=== PATIENT | female | born 2000 | race Caucasian/White ===

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

== ENCOUNTER → 2020-07-02 07:45 | Outpatient (CLI) | payer BC, SELFPAY ==
[2020-07-02 09:46] LABS: Alanine Aminotransferase 15 IU/L (<35); Albumin 4.6 g/dL (3.5-5.0); Albumin Globulin Ratio 1.5 (1.0-2.8); Alkaline Phosphatase 75 U/L (38-126); Aspartate Aminotransferase 24 IU/L (14-36); BUN Creatinine Ratio 17.4 (6-22); Bilirubin Total 0.2 mg/dL (0.2-1.3); Blood Urea Nitrogen 12 mg/dL (7-17); Calcium 9.7 mg/dL (8.4-10.2); Carbon Dioxide 27 mmol/L (22-32); Chloride 105 mmol/L (98-107); Estimated Glomerular Filt Rate > 60.0 mL/min (>60); Globulin 3.1 g/dL (1.7-4.1); Glucose 106 mg/dL (70-100); HEMOLYSIS < 15 (0-50); Potassium 3.6 mmol/L (3.4-5.1); Sodium 141 mmol/L (137-145); Total Protein 7.7 g/dL (6.3-8.2)
[2020-07-02 10:23] LABS: TSH w/ Reflex to FT4 1.29 uIU/mL (0.47-4.68)
[2020-07-02 10:43] LABS: Add Manual Diff / Slide Review NO; Basophils Absolute Auto 100 /uL (0-100); Eosinophils Absolute Auto 100 /uL (0-450); Hematocrit 39.8 % (36-46); Hemoglobin 13.7 g/dL (12.0-16.0); Lymphocytes Absolute Auto 1600 /uL (1100-4500); Lymphocytes Percent Auto 24.5 % (25-40); Mean Corpuscular HGB Conc 34.3 % (30-36); Mean Corpuscular Hemoglobin 29.9 PG (26-34); Mean Corpuscular Volume 87.1 fL (80-100); Monocytes Absolute Auto 400 /uL (0-900); Monocytes Percent Auto 6.6 % (3-14); Neutrophils Absolute Auto 4500 /uL (1500-7000); Neutrophils Percent Auto 66.9 % (50-75); Platelet Count 290 X10^3/uL (150-400); Red Blood Cell Count 4.57 X10^6/uL (4.0-5.2); Red Cell Distribution Width 12.8 % (11.6-14.8); White Blood Cell Count 6.7 X10^3/uL (4.5-11.0)
== END ==
PROVIDERS: PCP Family Medicine; Referring Provider Student in an Organized Health Care Education/Training Program; Visit Provider Student in an Organized Health Care Education/Training Program
DX: N34.3 Urethral syndrome, unspecified (principal); R11.2 Nausea with vomiting, unspecified; R19.7 Diarrhea, unspecified
CPT/HCPCS: 36415; 80053; 84443; 85025; 87045; 87086; 87177; 87899

== ENCOUNTER → 2021-01-29 17:25 | Outpatient (CLI) | payer BC, SELFPAY ==
[2021-01-29 18:32] LABS: COVID19 -Nasal RAPID Negative (Negative)
== END ==
PROVIDERS: PCP Family Medicine; Visit Provider Physician Assistant
DX: Z20.822 Contact with and (suspected) exposure to COVID-19 (principal); J31.2 Chronic pharyngitis
CPT/HCPCS: 87070; 87635

== ENCOUNTER 2021-06-10 05:15 | Observation (INO) | payer BC, SELFPAY ==
[2021-06-10] VITALS (13 sets, daily range): BP systolic 97–129; BP diastolic 60–87; PULSE 67–102; RESP 13–20; TEMP 36.3–36.9; O2SAT 96–100; BMI 23.3
--- NOTE | 2021-06-10 | DI.CT.S_ITS ---
PROCEDURE: CT SOFT TISSUE NECK W CON INDICATIONS: Neck pain. subqutaneous air in neck, chest TECHNIQUE: After the administration of intravenous contrast, 3.0 mm axial sections acquired from the sella to the aortic arch. Additional oblique axial 3.0 mm sections acquired through the pharynx. 3 mm thick coronal and sagittal reformats were generated. For radiation dose reduction, the following was used: automated exposure control. COMPARISON: None. FINDINGS: Image quality: Excellent. Lymph nodes: No enlarged lymph nodes seen throughout the neck. Vessels: Visualized vasculature appears patent. Neck spaces: Extensive soft tissue air is noted in the neck and the anterior chest wall related to large pneumomediastinum. Soft tissue air extends to the skull base. The oropharynx, nasopharynx, and pharynx demonstrate no mucosal lesions. The vocal cords, false vocal cords, pyriform sinuses, epiglottis, vallecula, and tongue base all appear normal. Extramucosal spaces appear unremarkable. Glands: The parotid and submandibular glands appear normal. Thyroid gland is normal. Miscellaneous: Visualized brain and orbits appear normal. Lung apices appear clear. Trace biapical pneumothoraces. Superficial soft tissues appear normal. Bones: No suspicious bony lesions. Visualized sinuses and mastoids appear unremarkable. IMPRESSION: 1. Large pneumomediastinum has dissected into the neck with large amount of air in the neck soft tissues and anterior upper chest wall soft tissues. 2. Trace biapical pneumothoraces. 3. No abscess. Dictated by: Aundrea Santiago MD, PhD on 06/10/2021 at 8:16 Approved by: Aundrea Santiago MD, PhD on 06/10/2021 at 8:19
--- NOTE | 2021-06-10 05:35 | DI.CT.S_ITS ---
PROCEDURE: CT CHEST W CON INDICATIONS: neck pain, + sub cutaneous air tracking up anterior neck TECHNIQUE: After the administration of intravenous contrast, 5 mm thick sections acquired from the pulmonary apices to the posterior costophrenic angles. 1 mm axial lung, 5 mm thick coronal and sagittal reformats and 7 mm axial MIP were acquired. For radiation dose reduction, the following was used: automated exposure control, adjustment of mA and/or kV according to patient size. COMPARISON: None. FINDINGS: Image quality: Excellent. Lungs and pleura: No acute air space opacities. No pleural effusions. Trace bilateral pneumothoraces. Central and peripheral airways are patent and normal in caliber. Mediastinum: Large volume of pneumomediastinum. Pneumomediastinum tracks into the soft tissues of the anterior upper chest and the neck. Heart size is normal. No pericardial effusion. No mediastinal or hilar adenopathy by size criteria. Thoracic aorta and central pulmonary arteries are normal in size. Esophagus is normal in caliber. Small air locule noted in the left lateral wall of the esophagus at the level of the aortic arch which could be related to a nondistended esophagus or esophageal wall defect. No hiatal hernia. Bones and chest wall: No suspicious bony lesions. No vertebral body compression fractures. No axillary or supraclavicular adenopathy by size criteria. Thyroid gland is within normal limits.. Abdomen: Focal fatty infiltration partially visualized in the liver adjacent to the falciform ligament. Visualized upper abdominal solid organs otherwise appear normal. Upper abdominal bowel loops are normal in caliber. IMPRESSION: 1. Large volume of pneumomediastinum. Likely causes of pneumomediastinum could be barotrauma or esophageal perforation. If there is clinical concern for esophageal perforation recommend Gastrografin esophagram for additional evaluation. 2. Pneumomediastinum has dissected into the extrapleural spaces with trace bilateral pneumothoraces. 3. Pneumomediastinum has dissected into the anterior chest wall and neck soft tissues. Dictated by: Aundrea Santiago MD, PhD on 06/10/2021 at 8:06 Approved by: Aundrea Santiago MD, PhD on 06/10/2021 at 8:11
--- NOTE | 2021-06-10 05:35 | ED_ITS ---
HPI - General Adult <Charo Gorman MD - Last Filed: 06/12/21 07:16> General Chief complaint: Upper Respiratory Symptoms Stated complaint: vomiting,swollen throat,cant eat/drink Time Seen by Provider: 06/10/21 05:34 Source: patient Mode of arrival: Ambulatory History of Present Illness HPI narrative: 21-year-old woman with a history of anxiety and reported yearly episodes of strep pharyngitis presents with 3 days of significantly increased nausea throat pain and inability to keep food or liquids down. She has noticed diarrhea mild abdominal pain secondary to the force of vomiting, no fevers no headaches. She states she has not been feeling particularly anxious recently but there have been times in the past where she was so anxious she was continuously vomiting. She reports no cough, headache no lower extremity edema. Related Data Previous Rx's Medication Instructions Recorded ondansetron 4 mg disintegrating 4 mg PO TID-QID PRN #10 tab 10/14/19 tablet ondansetron 4 mg disintegrating 4 mg PO Q8H PRN #14 tab 06/11/21 tablet Allergies Allergy/AdvReac Type Severity Reaction Status Date / Time No Known Drug Allergies Allergy Verified 06/10/21 11:51 Review of Systems <Charo Gorman MD - Last Filed: 06/12/21 07:16> Review of Systems Narrative: Remainder of complete review of systems is otherwise unremarkable except for that included in the HPI. Patient History <Charo Gorman MD - Last Filed: 06/12/21 07:16> Medical History (Updated 06/10/21 @ 10:59 by Kelle To DO) Anxiety Pharyngitis Social History household members: family Smoking Status: Former smoker alcohol intake: current Smoking Status: Former smoker alcohol intake frequency: 0-2 drinks per day Alcohol type: beer Substance Use Type: marijuana Exam <Charo Gorman MD - Last Filed: 06/12/21 07:16> Initial Vital Signs Initial Vital Signs: Vital Signs Temperature 98.3 F 06/10/21 05:15 Pulse Rate 102 H 06/10/21 05:15 Respiratory Rate 20 06/10/21 05:15 Blood Pressure 129/87 06/10/21 05:15 Pulse Oximetry 97 06/10/21 05:15 General: Healthy appearing, anxious, appears uncomfortable but Able to give a complete and coherent history. Well-nourished well-developed HEENT: Moist mucous membranes, normal sclera with widely dilated and reactive pupils, posterior pharynx is mildly erythematous with full tonsils but no exud ate Neck: Subcutaneous air palpable anteriorly over trachea larynx extending up toward tonsillar pillars and palpable over the sternal notch. No bruising no trauma. Respiratory: Lungs are clear to auscultation, no wheezing no rales no rhonchi. Full and symmetrical air movement Cardiac: Regular rate and rhythm no murmurs no bruits Abdomen: Soft, nontender, good bowel tones, no flank pain Skin: Warm and dry, no rashes Neurologic: Grossly neurologically intact with no obvious asymmetries or abnormalities Extremities: No trauma, well perfused Psych: Cooperative, appropriate insight and affect <Kelle To DO - Last Filed: 06/10/21 12:47> Initial Vital Signs Initial Vital Signs: Vital Signs Temperature 98.3 F 06/10/21 05:15 Pulse Rate 102 H 06/10/21 05:15 Respiratory Rate 20 06/10/21 05:15 Blood Pressure 129/87 06/10/21 05:15 Pulse Oximetry 97 06/10/21 05:15 Course <Charo Gorman MD - Last Filed: 06/12/21 07:16> Orders Ordered: Discontinued Medications Hydrocodone Bitart/Acetaminophen (Hydrocodone/Acet 5/325 Tablet) 1 tab PO Q4HR PRN PRN Reason: Pain, Moderate (4-6) Last Admin: 06/11/21 09:08 Dose: 1 tab Documented by: LENIN Enoxaparin Sodium (Enoxaparin 40 Mg/0.4 Ml Syringe) 40 mg SUBCUT DAILY GRETCHEN Last Admin: 06/11/21 09:10 Dose: Not Given Documented by: LENIN Hydromorphone HCl (Hydromorphone 0.5 Mg Inj) 0.5 mg IV Q15MIN PRN PRN Reason: Pain, Last Admin: 06/10/21 12:59 Dose: 0.5 mg Documented by: Admin: 06/10/21 06:00 Dose: 0.5 mg Documented by: STALIN Sodium Chloride (Normal Saline 0.9%) 1,000 mls @ 1,000 mls/hr IV BOLUS ONE Stop: 06/10/21 06:34 Last Infusion: 06/10/21 07:53 Dose: 0 mls/hr Documented by: Admin: 06/10/21 05:59 Dose: 1,000 mls/hr Documented by: STALIN POTASSIUM CHLORIDE IN WATER (Potassium Cl 10 Meq/100 Ml Maite) 10 meq in 100 mls @ 100 mls/hr IV Q1H GRETCHEN Stop: 06/10/21 13:14 Last Admin: 06/10/21 13:14 Dose: 50 mls/hr Documented by: Infusion: 06/10/21 13:14 Dose: 0 mls/hr Documented by: Infusion: 06/10/21 11:59 Dose: 0 mls/hr Documented by: Admin: 06/10/21 11:47 Dose: 100 mls/hr Documented by: SANDRA Lactated Ringer's (Lactated Ringers) 1,000 mls @ 100 mls/hr IV CONT GRETCHEN Last Admin: 06/11/21 03:05 Dose: 100 mls/hr Documented by: Infusion: 06/11/21 03:05 Dose: 100 mls/hr Documented by: Admin: 06/10/21 17:58 Dose: 100 mls/hr Documented by: LENIN Lorazepam (Lorazepam 2 Mg/Ml Inj) 0.5 mg IV NOW ONE Stop: 06/10/21 05:36 Last Admin: 06/10/21 06:00 Dose: 0.5 mg Documented by: STALIN Lorazepam (Lorazepam 2 Mg/Ml Inj) 1 mg IV NOW ONE Stop: 06/10/21 07:37 Last Admin: 06/10/21 07:52 Dose: 1 mg Documented by: ROMAN Morphine Sulfate (Morphine 2 Mg/Ml Inj) 2 mg IV Q4H PRN PRN Reason: Breakthrough pain only (8-10) Last Admin: 06/10/21 20:13 Dose: 2 mg Documented by: KKURAY Naloxone HCl (Naloxone 0.4 Mg/Ml Vial) 0.2 mg IV Q2MIN PRN PRN Reason: Opiate Reversal Ondansetron HCl (Ondansetron 4 Mg/2 Ml Inj) 4 mg IV NOW ONE Stop: 06/10/21 05:36 Last Admin: 06/10/21 06:00 Dose: 4 mg Documented by: STALIN Ondansetron HCl (Ondansetron 4 Mg/2 Ml Inj) 4 mg IV Q6HR PRN PRN Reason: Nausea And Vomiting Last Admin: 06/10/21 13:03 Dose: 4 mg Documented by: LENIN Ondansetron HCl (Ondansetron 4 Mg/2 Ml Inj) 4 mg IV Q8HR PRN PRN Reason: Nausea And Vomiting Ondansetron HCl (Ondansetron 4 Mg/2 Ml Inj) 4 mg IV Q4HR PRN PRN Reason: Nausea And Vomiting Last Admin: 06/11/21 10:13 Dose: 4 mg Documented by: Admin: 06/11/21 05:53 Dose: 4 mg Documented by: Admin: 06/10/21 17:55 Dose: 4 mg Documented by: LENIN Vital Signs Vital signs: Vital Signs - 8 hr 06/10/21 05:15 06/10/21 08:05 06/10/21 08:30 Temperature 98.3 F Pulse Rate 102 H 87 79 Respiratory Rate 20 17 16 Blood Pressure 129/87 101/60 104/68 Pulse Oximetry 97 99 100 06/10/21 09:00 06/10/21 09:32 06/10/21 10:00 Temperature Pulse Rate 85 80 Respiratory Rate 14 Blood Pressure 105/70 106/66 Pulse Oximetry 100 98 99 06/10/21 10:06 06/10/21 10:30 Temperature Pulse Rate 74 73 Respiratory Rate 15 13 Blood Pressure 106/66 99/63 Pulse Oximetry 99 98 <Kelle To DO - Last Filed: 06/10/21 12:47> Orders Ordered: Discontinued Medications Hydrocodone Bitart/Acetaminophen (Hydrocodone/Acet 5/325 Tablet) 1 tab PO Q4HR PRN PRN Reason: Pain, Moderate (4-6) Last Admin: 06/11/21 09:08 Dose: 1 tab Documented by: LENIN Enoxaparin Sodium (Enoxaparin 40 Mg/0.4 Ml Syringe) 40 mg SUBCUT DAILY GRETCHEN Last Admin: 06/11/21 09:10 Dose: Not Given Documented by: LENIN Hydromorphone HCl (Hydromorphone 0.5 Mg Inj) 0.5 mg IV Q15MIN PRN PRN Reason: Pain, Last Admin: 06/10/21 12:59 Dose: 0.5 mg Documented by: Admin: 06/10/21 06:00 Dose: 0.5 mg Documented by: STALIN Sodium Chloride (Normal Saline 0.9%) 1,000 mls @ 1,000 mls/hr IV BOLUS ONE Stop: 06/10/21 06:34 Last Infusion: 06/10/21 07:53 Dose: 0 mls/hr Documented by: Admin: 06/10/21 05:59 Dose: 1,000 mls/hr Documented by: STALIN POTASSIUM CHLORIDE IN WATER (Potassium Cl 10 Meq/100 Ml Maite) 10 meq in 100 mls @ 100 mls/hr IV Q1H GRETCHEN Stop: 06/10/21 13:14 Last Admin: 06/10/21 13:14 Dose: 50 mls/hr Documented by: Infusion: 06/10/21 13:14 Dose: 0 mls/hr Documented by: Infusion: 06/10/21 11:59 Dose: 0 mls/hr Documented by: Admin: 06/10/21 11:47 Dose: 100 mls/hr Documented by: SANDRA Lactated Ringer's (Lactated Ringers) 1,000 mls @ 100 mls/hr IV CONT GRETCHEN Last Admin: 06/11/21 03:05 Dose: 100 mls/hr Documented by: Infusion: 06/11/21 03:05 Dose: 100 mls/hr Documented by: Admin: 06/10/21 17:58 Dose: 100 mls/hr Documented by: LENIN Lorazepam (Lorazepam 2 Mg/Ml Inj) 0.5 mg IV NOW ONE Stop: 06/10/21 05:36 Last Admin: 06/10/21 06:00 Dose: 0.5 mg Documented by: STALIN Lorazepam (Lorazepam 2 Mg/Ml Inj) 1 mg IV NOW ONE Stop: 06/10/21 07:37 Last Admin: 06/10/21 07:52 Dose: 1 mg Documented by: ROMAN Morphine Sulfate (Morphine 2 Mg/Ml Inj) 2 mg IV Q4H PRN PRN Reason: Breakthrough pain only (8-10) Last Admin: 06/10/21 20:13 Dose: 2 mg Documented by: KKURAY Naloxone HCl (Naloxone 0.4 Mg/Ml Vial) 0.2 mg IV Q2MIN PRN PRN Reason: Opiate Reversal Ondansetron HCl (Ondansetron 4 Mg/2 Ml Inj) 4 mg IV NOW ONE Stop: 06/10/21 05:36 Last Admin: 06/10/21 06:00 Dose: 4 mg Documented by: STALIN Ondansetron HCl (Ondansetron 4 Mg/2 Ml Inj) 4 mg IV Q6HR PRN PRN Reason: Nausea And Vomiting Last Admin: 06/10/21 13:03 Dose: 4 mg Documented by: LENIN Ondansetron HCl (Ondansetron 4 Mg/2 Ml Inj) 4 mg IV Q8HR PRN PRN Reason: Nausea And Vomiting Ondansetron HCl (Ondansetron 4 Mg/2 Ml Inj) 4 mg IV Q4HR PRN PRN Reason: Nausea And Vomiting Last Admin: 06/11/21 10:13 Dose: 4 mg Documented by: Admin: 06/11/21 05:53 Dose: 4 mg Documented by: Admin: 06/10/21 17:55 Dose: 4 mg Documented by: LENIN Vital Signs Vital signs: Vital Signs - 8 hr 06/10/21 05:15 06/10/21 08:05 06/10/21 08:30 Temperature 98.3 F Pulse Rate 102 H 87 79 Respiratory Rate 20 17 16 Blood Pressure 129/87 101/60 104/68 Pulse Oximetry 97 99 100 06/10/21 09:00 06/10/21 09:32 06/10/21 10:00 Temperature Pulse Rate 85 80 Respiratory Rate 14 Blood Pressure 105/70 106/66 Pulse Oximetry 100 98 99 06/10/21 10:06 06/10/21 10:30 Temperature Pulse Rate 74 73 Respiratory Rate 15 13 Blood Pressure 106/66 99/63 Pulse Oximetry 99 98 Medical Decision Making <Charo Gorman MD - Last Filed: 06/12/21 07:16> Lab Data Result diagrams: 06/11/21 04:26 06/11/21 04:26 Labs: Lab Results 06/10/21 06/10/21 06/10/21 Range/Units 05:30 05:40 05:40 WBC 10.4 (4.5-11.0) X10^3/uL RBC 5.05 (4.0-5.2) X10^6/uL Hgb 14.6 (12.0-16.0) g/dL Hct 42.0 (36-46) % MCV 83.1 (80-100) fL MCH 28.9 (26-34) PG MCHC 34.8 (30-36) % RDW 13.1 (11.6-14.8) % Plt Count 342 (150-400) X10^3/uL Neut % (Auto) 70.9 (50-75) % Lymph % (Auto) 16.9 L (25-40) % [place] % (Auto) 10.2 (3-14) % Eos % (Auto) 1.6 L (2-4) % Baso % (Auto) 0.4 (0-2) % Neut # (Auto) 7400 H (8523-6352) /uL Lymph # (Auto) 1800 (6405-2427) /uL [place] # (Auto) 1100 H (0-900) /uL Eos # (Auto) 200 (0-450) /uL Baso # (Auto) 0 (0-100) /uL Sodium 141 (137-145) mmol/L Potassium 3.2 L (3.4-5.1) mmol/L Chloride 105 (98-107) mmol/L Carbon Dioxide 22 (22-32) mmol/L BUN 12 (7-17) mg/dL Creatinine 0.85 (0.52-1.04) mg/dL Estimated GFR > 60 (>60) mL/min BUN/Creatinine Ratio 14.1 (6-22) Glucose 111 H (70-100) mg/dL Calcium 9.8 (8.4-10.2) mg/dL Total Bilirubin 0.8 (0.2-1.3) mg/dL AST 20 (14-36) IU/L ALT 13 (<35) IU/L Alkaline Phosphatase 98 (38-126) U/L Total Protein 8.6 H (6.3-8.2) g/dL Albumin 5.1 H (3.5-5.0) g/dL Globulin 3.5 (1.7-4.1) g/dL Albumin/Globulin Ratio 1.5 (1.0-2.8) SARS-CoV-2 (PCR) (Negative) Group A Strep (PCR) Negative (Negative) 06/10/21 Range/Units 05:40 WBC (4.5-11.0) X10^3/uL RBC (4.0-5.2) X10^6/uL Hgb (12.0-16.0) g/dL Hct (36-46) % MCV (80-100) fL MCH (26-34) PG MCHC (30-36) % RDW (11.6-14.8) % Plt Count (150-400) X10^3/uL Neut % (Auto) (50-75) % Lymph % (Auto) (25-40) % [place] % (Auto) (3-14) % Eos % (Auto) (2-4) % Baso % (Auto) (0-2) % Neut # (Auto) (2107-6767) /uL Lymph # (Auto) (1044-1543) /uL [place] # (Auto) (0-900) /uL Eos # (Auto) (0-450) /uL Baso # (Auto) (0-100) /uL Sodium (137-145) mmol/L Potassium (3.4-5.1) mmol/L Chloride (98-107) mmol/L Carbon Dioxide (22-32) mmol/L BUN (7-17) mg/dL Creatinine (0.52-1.04) mg/dL Estimated GFR (>60) mL/min BUN/Creatinine Ratio (6-22) Glucose (70-100) mg/dL Calcium (8.4-10.2) mg/dL Total Bilirubin (0.2-1.3) mg/dL AST (14-36) IU/L ALT (<35) IU/L Alkaline Phosphatase (38-126) U/L Total Protein (6.3-8.2) g/dL Albumin (3.5-5.0) g/dL Globulin (1.7-4.1) g/dL Albumin/Globulin Ratio (1.0-2.8) SARS-CoV-2 (PCR) Negative (Negative) Group A Strep (PCR) (Negative) Point of Care Testing Test Results Negative Point of care testing: Point of Care Testing Test Results Negative <Kelle Yousuf, DO - Last Filed: 06/10/21 12:47> Lab Data Labs: Lab Results 06/10/21 06/10/21 06/10/21 Range/Units 05:30 05:40 05:40 WBC 10.4 (4.5-11.0) X10^3/uL RBC 5.05 (4.0-5.2) X10^6/uL Hgb 14.6 (12.0-16.0) g/dL Hct 42.0 (36-46) % MCV 83.1 (80-100) fL MCH 28.9 (26-34) PG MCHC 34.8 (30-36) % RDW 13.1 (11.6-14.8) % Plt Count 342 (150-400) X10^3/uL Neut % (Auto) 70.9 (50-75) % Lymph % (Auto) 16.9 L (25-40) % [place] % (Auto) 10.2 (3-14) % Eos % (Auto) 1.6 L (2-4) % Baso % (Auto) 0.4 (0-2) % Neut # (Auto) 7400 H (0945-6613) /uL Lymph # (Auto) 1800 (9770-1044) /uL [place] # (Auto) 1100 H (0-900) /uL Eos # (Auto) 200 (0-450) /uL Baso # (Auto) 0 (0-100) /uL Sodium 141 (137-145) mmol/L Potassium 3.2 L (3.4-5.1) mmol/L Chloride 105 (98-107) mmol/L Carbon Dioxide 22 (22-32) mmol/L BUN 12 (7-17) mg/dL Creatinine 0.85 (0.52-1.04) mg/dL Estimated GFR > 60 (>60) mL/min BUN/Creatinine Ratio 14.1 (6-22) Glucose 111 H (70-100) mg/dL Calcium 9.8 (8.4-10.2) mg/dL Total Bilirubin 0.8 (0.2-1.3) mg/dL AST 20 (14-36) IU/L ALT 13 (<35) IU/L Alkaline Phosphatase 98 (38-126) U/L Total Protein 8.6 H (6.3-8.2) g/dL Albumin 5.1 H (3.5-5.0) g/dL Globulin 3.5 (1.7-4.1) g/dL Albumin/Globulin Ratio 1.5 (1.0-2.8) SARS-CoV-2 (PCR) (Negative) Group A Strep (PCR) Negative (Negative) 06/10/21 Range/Units 05:40 WBC (4.5-11.0) X10^3/uL RBC (4.0-5.2) X10^6/uL Hgb (12.0-16.0) g/dL Hct (36-46) % MCV (80-100) fL MCH (26-34) PG MCHC (30-36) % RDW (11.6-14.8) % Plt Count (150-400) X10^3/uL Neut % (Auto) (50-75) % Lymph % (Auto) (25-40) % [place] % (Auto) (3-14) % Eos % (Auto) (2-4) % Baso % (Auto) (0-2) % Neut # (Auto) (1822-4184) /uL Lymph # (Auto) (6987-5231) /uL [place] # (Auto) (0-900) /uL Eos # (Auto) (0-450) /uL Baso # (Auto) (0-100) /uL Sodium (137-145) mmol/L Potassium (3.4-5.1) mmol/L Chloride (98-107) mmol/L Carbon Dioxide (22-32) mmol/L BUN (7-17) mg/dL Creatinine (0.52-1.04) mg/dL Estimated GFR (>60) mL/min BUN/Creatinine Ratio (6-22) Glucose (70-100) mg/dL Calcium (8.4-10.2) mg/dL Total Bilirubin (0.2-1.3) mg/dL AST (14-36) IU/L ALT (<35) IU/L Alkaline Phosphatase (38-126) U/L Total Protein (6.3-8.2) g/dL Albumin (3.5-5.0) g/dL Globulin (1.7-4.1) g/dL Albumin/Globulin Ratio (1.0-2.8) SARS-CoV-2 (PCR) Negative (Negative) Group A Strep (PCR) (Negative) Point of Care Testing Test Results Negative Point of care testing: Point of Care Testing Test Results Negative Imaging Data CT scan - chest: Radiologist's Impression: Pulmonary report: Large volume of pneumomediastinum tracking up the cervical so ft tissues bilaterally. The thoracic esophagus is collapsed limiting evaluation for esophageal rupture. Questionable linear defect in the right esophageal wall at the level of the thea evaluation with water-soluble contrast such as Gastrografin is recommended to evaluate for esophageal perforation. Dissection of mediastinal air into the extrapleural space with tiny bilateral pneumothoraces ST soft tissue neck: Radiologist's Impression: PROCEDURE:? CT SOFT TISSUE NECK W CON ? INDICATIONS:? Neck pain. subqutaneous air in neck, chest ? TECHNIQUE:? After the administration of intravenous contrast, 3.0 mm axial sections acquired from the sella to the aortic arch.? Additional oblique axial 3.0 mm sections acquired through the pharynx.? 3 mm thick coronal and sagittal reformats were generated.? For radiation dose reduction, the following was used:? automated exposure control.? ? COMPARISON:? None. ? FINDINGS:? Image quality:? Excellent.? ? Lymph nodes:? No enlarged lymph nodes seen throughout the neck.? ? Vessels:? Visualized vasculature appears patent.? ? Neck spaces:? Extensive soft tissue air is noted in the neck and the anterior chest wall related to large pneumomediastinum.? Soft tissue air extends to the skull base.? The oropharynx, nasopharynx, and pharynx demonstrate no mucosal lesions.? The vocal cords, false vocal cords, pyriform sinuses, epiglottis, vallecula, and tongue base all appear normal.? Extramucosal spaces appear unremarkable.? ? Glands:? The parotid and submandibular glands appear normal.? Thyroid gland is normal. ? Miscellaneous:? Visualized brain and orbits appear normal.? Lung apices appear clear.? Trace biapical pneumothoraces.? Superficial soft tissues appear normal. ? Bones:? No suspicious bony lesions.? Visualized sinuses and mastoids appear unremarkable. ? ? ? IMPRESSION:? ? 1. Large pneumomediastinum has dissected into the neck with large amount of air in the neck soft tissues and anterior upper chest wall soft tissues. ? 2. Trace biapical pneumothoraces. ? 3. No abscess.? ? Dictated by: Aundrea Santiago MD, PhD on 06/10/2021 at 8:16 ?? Xray barium swallow: Radiologist's Impression: Signed Patient: Kerrie Oscar MR#: [id number] : 2000 Acct:[id number] Age/Sex: 21 / F Date of Service: 06/10/21 Loc: ED Accession Number: [id number] ?? Procedure: FL barium swallow Ordering Provider: Kelle To D.O. PROCEDURE:? FL BARIUM SWALLOW ? INDICATIONS:? esophageal rupture, with gastrograffin ? COMPARISON:? None. ? FINDINGS:? ? Function:? There is normal esophageal peristalsis.? ? Morphology:? Single contrast views show no extravasation of contrast from the esophagus to suggest perforation.? No esophageal strictures, extrinsic mass effects, or diverticula.? Limited images of the stomach demonstrate normal appearance.? ? IMPRESSION:? No evidence of esophageal perforation. ? ? Dictated by: Aundrea Santiago MD, PhD on 06/10/2021 at 9:42 ? ? Approved by: Aundrea Santiago MD, PhD on 06/10/2021 at 9:45 ? MDM Narrative Medical decision making narrative: Patient signed out to me by Dr. Velazquez. I have seen and evaluated her myself. Overall feeling much calmer she does have some subcutaneous air noted in the cervical region. CT shows extensive pneumomediastinum. She states that she has been vomiting for the last 3 days multiple occasionally violently. His she de nies self induced vomiting. She started complaining of shortness of breath and sore throat yesterday. Unable to eat or drink anything since then. Came to ED for further evaluation. Vitals are stable she is satting 99% on room air 08:14 Dr. Nassar, CVT, at [facility] has reviewed scans himself. He states that without pleural effusion is unlikely esophageal perforation, however does need further workup. He thinks this is from Alana effect. At this time he recommends a standard esophagram nausea CT esophagram to rule out esophageal perforation. If that is negative he does recommend overnight admission for pain control in vitals to be monitored. He says there are trace pneumothoraces however no need to treat at this time. Patient has remained stable. Pain is controlled. She was given IV fluids. Potassium is mildly low, likely from vomiting. 1100am- Dr. Marin updated on patient's symptoms test results and [facility] recommendations. Agrees with observation at this time. Discharge Plan Departure Patient Disposition: Admitted as Observation Clinical Impression: Pneumomediastinum, Acute hypokalemia Admit Date/Time: 06/10/21 10:59 Admit Provider: Panchito Marin
[2021-06-10 05:53] LABS: Add Manual Diff / Slide Review NO; Basophils Absolute Auto 0 /uL (0-100); Basophils Percent Auto 0.4 % (0-2); Eosinophils Absolute Auto 200 /uL (0-450); Eosinophils Percent Auto 1.6 % (2-4); Hemoglobin 14.6 g/dL (12.0-16.0); Lymphocytes Absolute Auto 1800 /uL (1100-4500); Lymphocytes Percent Auto 16.9 % (25-40); Mean Corpuscular HGB Conc 34.8 % (30-36); Mean Corpuscular Hemoglobin 28.9 PG (26-34); Mean Corpuscular Volume 83.1 fL (80-100); Monocytes Absolute Auto 1100 /uL (0-900); Monocytes Percent Auto 10.2 % (3-14); Neutrophils Absolute Auto 7400 /uL (1500-7000); Neutrophils Percent Auto 70.9 % (50-75); Platelet Count 342 X10^3/uL (150-400); Red Blood Cell Count 5.05 X10^6/uL (4.0-5.2); Red Cell Distribution Width 13.1 % (11.6-14.8); White Blood Cell Count 10.4 X10^3/uL (4.5-11.0)
[2021-06-10] MEDS: SODIUM CHLORIDE 0.9% 1,000 ML 1000 ML IV (05:59)
[2021-06-10] MEDS: HYDROMORPHONE 0.5 MG INJ IV ×2 (06:00→12:59)
[2021-06-10] MEDS: ONDANSETRON 4 MG/2 ML INJ IV ×3 (06:00→17:55)
[2021-06-10] MEDS: LORazepam 2 MG/ML INJ 0.5 MG IV (06:00)
[2021-06-10 06:03] LABS: Alanine Aminotransferase 13 IU/L (<35); Albumin 5.1 g/dL (3.5-5.0); Albumin Globulin Ratio 1.5 (1.0-2.8); Alkaline Phosphatase 98 U/L (38-126); Aspartate Aminotransferase 20 IU/L (14-36); BUN Creatinine Ratio 14.1 (6-22); Bilirubin Total 0.8 mg/dL (0.2-1.3); Blood Urea Nitrogen 12 mg/dL (7-17); Calcium 9.8 mg/dL (8.4-10.2); Carbon Dioxide 22 mmol/L (22-32); Chloride 105 mmol/L (98-107); Estimated Glomerular Filt Rate > 60 mL/min (>60); Globulin 3.5 g/dL (1.7-4.1); Glucose 111 mg/dL (70-100); HEMOLYSIS < 15 (0-50); Potassium 3.2 mmol/L (3.4-5.1); Sodium 141 mmol/L (137-145); Total Protein 8.6 g/dL (6.3-8.2)
[2021-06-10 06:06] LABS: COVID19 -Nasal RAPID Negative (Negative)
[2021-06-10 06:45] LABS: Strep Grp A by PCR Rapid Negative (Negative)
[2021-06-10] MEDS: LORazepam 2 MG/ML INJ 1 MG IV (07:52)
--- NOTE | 2021-06-10 08:21 | DI.RAD.S_ITS ---
PROCEDURE: FL BARIUM SWALLOW INDICATIONS: esophageal rupture, with gastrograffin COMPARISON: None. FINDINGS: Function: There is normal esophageal peristalsis. Morphology: Single contrast views show no extravasation of contrast from the esophagus to suggest perforation. No esophageal strictures, extrinsic mass effects, or diverticula. Limited images of the stomach demonstrate normal appearance. IMPRESSION: No evidence of esophageal perforation. Dictated by: Aundrea Santiago MD, PhD on 06/10/2021 at 9:42 Approved by: Aundrea Santiago MD, PhD on 06/10/2021 at 9:45
--- NOTE | 2021-06-10 10:03 | PC.NURSE ---
pt has crepitus in the anterior upper chest and neck. no difficulty breathing. placed oxygen for comfort.
[2021-06-10] MEDS: POTASSIUM CHLORIDE IN WATER 10 MEQ/100 ML PIGGYBACK 100 MEQ IV (11:47)
[2021-06-10] MEDS: POTASSIUM CHLORIDE IN WATER 10 MEQ/100 ML PIGGYBACK 50 MEQ IV (13:14)
--- NOTE | 2021-06-10 16:27 | PC.NURSE ---
Addendum entered by Kenna Mccollum R.N. 06/10/21 18:56: patient tolerating RA, denies having any appetite Original Note: Pt arrived from ED this afternoon ambulating with steady gait, VSS, afebrile. She is 100% on 2LNC, given for 02 from Ed for support. She receives x2 bags of k+riders, tolerating well. MD Marin notified of patient's arrival to the unit and received telephone orders for zofran PRN. She is medicated with x1 dose of 0.5 mg IV dilaudid for throat pain. Observed crepitus from patient's anterior chest up to her jaw. LS clear throughout. Continuous monitoring. She reports nausea improved and requesting to drink. notified and ordered pt a clear liquid diet which she is tolerating well.
--- NOTE | 2021-06-10 17:12 | PM.HP.1 ---
History of Present Illness History of Present Illness Date Patient Seen: 06/10/21 Chief complaint: vomiting,swollen throat, cant eat/drink Narrative: The patient is a 21-year-old woman with a history of anxiety who vomits frequently due to her anxiety. She had a recent episode of retching and dry heaving over the past 3 days and developed neck pain and swelling. She presented to the emergency room this morning where a CT scan showed significant pneumomediastinum and subcutaneous emphysema. Dr. To consulted with the on-call cardiothoracic surgeon at her review who recommended an esophagram to rule out an esophageal perforation which was performed and was negative. He then recommended observation here overnight. Patient History Medical History (Updated 06/10/21 @ 10:59 by Kelle To DO) Anxiety Pharyngitis Family & Social History Social History: household members family Prior Living Arrangements House Safety & Behavioral: Feels Safe in Current Yes Environment Been Physically Hurt or No Threatened By a Person Suicidal Ideation Description None Suicide Plan Description No Plan Tobacco & Substance use: Tobacco type cigarettes Smoking Status Former smoker alcohol intake current alcohol intake frequency 0-2 drinks per day Substance Use Type marijuana Meds Home Medications and Allergies Home Medications Medication Instructions Recorded Confirmed Type ondansetron 4 mg disintegrating 4 mg PO TID-QID PRN #10 tab 10/14/19 06/10/21 Rx tablet Allergies Allergy/AdvReac Type Severity Reaction Status Date / Time No Known Drug Allergies Allergy Verified 06/10/21 11:51 Exam Vital Signs (past 8 hours): - 06/10/21 09:32 06/10/21 10:00 06/10/21 10:06 Temperature Pulse Rate 80 74 Respiratory Rate 14 15 Blood Pressure 106/66 106/66 Pulse Oximetry 98 99 99 06/10/21 10:30 06/10/21 11:00 06/10/21 11:30 Temperature Pulse Rate 73 72 74 Respiratory Rate 13 13 14 Blood Pressure 99/63 100/61 97/63 Pulse Oximetry 98 96 98 06/10/21 12:10 06/10/21 15:00 Temperature 97.4 F L 98.1 F Pulse Rate 78 67 Respiratory Rate 20 Blood Pressure 124/75 103/67 Pulse Oximetry 99 100 Oxygen Delivery Method Room Air Const General: healthy appearing and comfortable HENNH Other: There is crepitus involving the subcutaneous tissue of the bilateral neck Objective Labs Result Diagrams: 06/10/21 05:40 06/10/21 05:40 Labs: Laboratory Results - last 24 hr 06/10/21 06/10/21 06/10/21 05:30 05:40 05:40 WBC 10.4 RBC 5.05 Hgb 14.6 Hct 42.0 MCV 83.1 MCH 28.9 MCHC 34.8 RDW 13.1 Plt Count 342 Neut % (Auto) 70.9 Lymph % (Auto) 16.9 L [place] % (Auto) 10.2 Eos % (Auto) 1.6 L Baso % (Auto) 0.4 Neut # (Auto) 7400 H Lymph # (Auto) 1800 [place] # (Auto) 1100 H Eos # (Auto) 200 Baso # (Auto) 0 Sodium 141 Potassium 3.2 L Chloride 105 Carbon Dioxide 22 BUN 12 Creatinine 0.85 Estimated GFR > 60 BUN/Creatinine Ratio 14.1 Glucose 111 H Calcium 9.8 Total Bilirubin 0.8 AST 20 ALT 13 Alkaline Phosphatase 98 Total Protein 8.6 H Albumin 5.1 H Globulin 3.5 Albumin/Globulin Ratio 1.5 SARS-CoV-2 (PCR) Group A Strep (PCR) Negative 06/10/21 05:40 WBC RBC Hgb Hct MCV MCH MCHC RDW Plt Count Neut % (Auto) Lymph % (Auto) [place] % (Auto) Eos % (Auto) Baso % (Auto) Neut # (Auto) Lymph # (Auto) [place] # (Auto) Eos # (Auto) Baso # (Auto) Sodium Potassium Chloride Carbon Dioxide BUN Creatinine Estimated GFR BUN/Creatinine Ratio Glucose Calcium Total Bilirubin AST ALT Alkaline Phosphatase Total Protein Albumin Globulin Albumin/Globulin Ratio SARS-CoV-2 (PCR) Negative Group A Strep (PCR) Assessment & Plan Assessment and plan (1) Pneumomediastinum: Status: Acute Plan Admit for observation. Advance diet as tolerates. We will perform a two view chest x-ray in the morning and if she is doing well will be able to discharge home. Time Spent With Patient Critical Care time: I spent a total of [] minutes of critical care time on this patient's care today; this time is exclusive of procedural time. Quality VTE Deep Vein Thrombosis/Pulmonary Embolism Present on Admission: No
--- NOTE | 2021-06-10 17:18 | PM.HP.1 ---
History of Present Illness History of Present Illness Chief complaint: vomiting,swollen throat, cant eat/drink Narrative: The patient is a 21-year-old woman with a history of anxiety who vomits frequently due to her anxiety. She had a recent episode of retching and dry heaving over the past 3 days and developed neck pain and swelling. She presented to the emergency room this morning where a CT scan showed significant pneumomediastinum and subcutaneous emphysema. Dr. To consulted with the on-call cardiothoracic surgeon at her review who recommended an esophagram to rule out an esophageal perforation which was performed and was negative. He then recommended observation here overnight. Patient History Medical History (Updated 06/10/21 @ 10:59 by Kelle To DO) Anxiety Pharyngitis Family & Social History Social History: household members family Prior Living Arrangements House Safety & Behavioral: Feels Safe in Current Yes Environment Been Physically Hurt or No Threatened By a Person Suicidal Ideation Description None Suicide Plan Description No Plan Tobacco & Substance use: Tobacco type cigarettes Smoking Status Former smoker alcohol intake current alcohol intake frequency 0-2 drinks per day Substance Use Type marijuana Meds Home Medications and Allergies Home Medications Medication Instructions Recorded Confirmed Type ondansetron 4 mg disintegrating 4 mg PO TID-QID PRN #10 tab 10/14/19 06/10/21 Rx tablet Allergies Allergy/AdvReac Type Severity Reaction Status Date / Time No Known Drug Allergies Allergy Verified 06/10/21 11:51 Exam Vital Signs (past 8 hours): - 06/10/21 09:32 06/10/21 10:00 06/10/21 10:06 Temperature Pulse Rate 80 74 Respiratory Rate 14 15 Blood Pressure 106/66 106/66 Pulse Oximetry 98 99 99 06/10/21 10:30 06/10/21 11:00 06/10/21 11:30 Temperature Pulse Rate 73 72 74 Respiratory Rate 13 13 14 Blood Pressure 99/63 100/61 97/63 Pulse Oximetry 98 96 98 06/10/21 12:10 06/10/21 15:00 Temperature 97.4 F L 98.1 F Pulse Rate 78 67 Respiratory Rate 20 Blood Pressure 124/75 103/67 Pulse Oximetry 99 100 Oxygen Delivery Method Room Air Objective Labs Result Diagrams: 06/10/21 05:40 06/10/21 05:40 Labs: Laboratory Results - last 24 hr 06/10/21 06/10/2106/10/22 05:30 05:40 05:40 WBC 10.4 RBC 5.05 Hgb 14.6 Hct 42.0 MCV 83.1 MCH 28.9 MCHC 34.8 RDW 13.1 Plt Count 342 Neut % (Auto) 70.9 Lymph % (Auto) 16.9 L [place] % (Auto) 10.2 Eos % (Auto) 1.6 L Baso % (Auto) 0.4 Neut # (Auto) 7400 H Lymph # (Auto) 1800 [place] # (Auto) 1100 H Eos # (Auto) 200 Baso # (Auto) 0 Sodium 141 Potassium 3.2 L Chloride 105 Carbon Dioxide 22 BUN 12 Creatinine 0.85 Estimated GFR > 60 BUN/Creatinine Ratio 14.1 Glucose 111 H Calcium 9.8 Total Bilirubin 0.8 AST 20 ALT 13 Alkaline Phosphatase 98 Total Protein 8.6 H Albumin 5.1 H Globulin 3.5 Albumin/Globulin Ratio 1.5 SARS-CoV-2 (PCR) Group A Strep (PCR) Negative 06/10/21 05:40 WBC RBC Hgb Hct MCV MCH MCHC RDW Plt Count Neut % (Auto) Lymph % (Auto) [place] % (Auto) Eos % (Auto) Baso % (Auto) Neut # (Auto) Lymph # (Auto) [place] # (Auto) Eos # (Auto) Baso # (Auto) Sodium Potassium Chloride Carbon Dioxide BUN Creatinine Estimated GFR BUN/Creatinine Ratio Glucose Calcium Total Bilirubin AST ALT Alkaline Phosphatase Total Protein Albumin Globulin Albumin/Globulin Ratio SARS-CoV-2 (PCR) Negative Group A Strep (PCR) Assessment & Plan Assessment and plan (1) Pneumomediastinum: Status: Acute Time Spent With Patient Critical Care time: I spent a total of [] minutes of critical care time on this patient's care today; this time is exclusive of procedural time. Quality VTE Deep Vein Thrombosis/Pulmonary Embolism Present on Admission: No
[2021-06-10] MEDS: LACTATED RINGERS 1,000 ML 100 ML IV (17:58)
[2021-06-10] MEDS: MORPHINE 2 MG/ML INJ IV (20:13)
--- NOTE | 2021-06-11 | DI.RAD.S_ITS ---
PROCEDURE: XR CHEST 2V INDICATIONS: pneumothorax TECHNIQUE: 2 views of the chest were acquired. COMPARISON: [facility], CT, CT CHEST W CON, 06/10/2021, 5:45. FINDINGS: Surgical changes and devices: None. Lungs and pleura: Lungs are clear. No pleural effusions. Trace apical pneumothoraces. Mediastinum: Pneumomediastinum noted which has dissected into the soft tissues of the lower neck and upper chest wall. Mediastinal contours are normal. Heart size is normal. Bones and chest wall: No suspicious bony abnormalities. Soft tissues appear unremarkable. IMPRESSION: Trace apical pneumothoraces and pneumomediastinum not significantly changed compared to prior CT scan. Dictated by: Aundrea Santiago MD, PhD on 06/11/2021 at 8:06 Approved by: Aundrea Santiago MD, PhD on 06/11/2021 at 8:09
[2021-06-11] MEDS: LACTATED RINGERS 1,000 ML 100 ML IV (03:05)
[2021-06-11 04:43] LABS: Add Manual Diff / Slide Review NO; Basophils Absolute Auto 0 /uL (0-100); Basophils Percent Auto 0.6 % (0-2); Eosinophils Absolute Auto 300 /uL (0-450); Eosinophils Percent Auto 4.4 % (2-4); Hematocrit 36.9 % (36-46); Hemoglobin 12.8 g/dL (12.0-16.0); Lymphocytes Absolute Auto 1800 /uL (1100-4500); Lymphocytes Percent Auto 29.2 % (25-40); Mean Corpuscular HGB Conc 34.6 % (30-36); Mean Corpuscular Hemoglobin 29.2 PG (26-34); Mean Corpuscular Volume 84.3 fL (80-100); Monocytes Absolute Auto 600 /uL (0-900); Monocytes Percent Auto 9.5 % (3-14); Neutrophils Absolute Auto 3500 /uL (1500-7000); Neutrophils Percent Auto 56.3 % (50-75); Platelet Count 267 X10^3/uL (150-400); Red Blood Cell Count 4.38 X10^6/uL (4.0-5.2); Red Cell Distribution Width 13.1 % (11.6-14.8); White Blood Cell Count 6.2 X10^3/uL (4.5-11.0)
[2021-06-11 04:50] LABS: BUN Creatinine Ratio 9.6 (6-22); Blood Urea Nitrogen 7 mg/dL (7-17); Calcium 8.8 mg/dL (8.4-10.2); Carbon Dioxide 26 mmol/L (22-32); Chloride 107 mmol/L (98-107); Estimated Glomerular Filt Rate > 60 mL/min (>60); Glucose 92 mg/dL (70-100); HEMOLYSIS < 15 (0-50); Potassium 3.6 mmol/L (3.4-5.1); Sodium 141 mmol/L (137-145)
[2021-06-11] MEDS: ONDANSETRON 4 MG/2 ML INJ IV ×2 (05:53→10:13)
--- NOTE | 2021-06-11 08:32 | P.DS_ITS ---
History of Present Illness History of Present Illness Chief complaint: vomiting,swollen throat, cant eat/drink Narrative: The patient is a 21-year-old woman with a history of anxiety who vomits frequently due to her anxiety. She had a recent episode of retching and dry heaving over the past 3 days and developed neck pain and swelling. She presented to the emergency room this morning where a CT scan showed significant pneumomediastinum and subcutaneous emphysema. Dr. To consulted with the on-call cardiothoracic surgeon at her review who recommended an esophagram to rule out an esophageal perforation which was performed and was negative. He then recommended observation here overnight. Discharge Providers Provider Date of admission: 06/10/21 10:59 Discharge Date: 06/11/21 Primary care physician: Ricky Pitts MD Discharge provider: Panchito Marin MD Summary Hospital Course Discharge Diagnosis: Pneumomediastinum Hospital Course: Patient was admitted for observation the recommendation of the cardiothoracic surgeon are reviewed. She remained stable overnight. She was able to tolerate a clear liquid diet but had no appetite to try solid food. This was her baseline. Her labs were normal in the morning and her chest x-ray showed stable tiny pneumothoraces and pneumomediastinum. She was discharged home. Exam Vital Signs (past 8 hours): Oxygen Delivery Method Room Air Oxygen Flow Rate 0 Narrative Exam Narrative: No acute distress Stable subcutaneous emphysema of the neck and supraclavicular regions. Objective Labs Result Diagrams: 06/11/21 04:26 06/11/21 04:26 Labs: Laboratory Results - last 24 hr 06/11/21 06/11/21 04:26 04:26 WBC 6.2 RBC 4.38 Hgb 12.8 Hct 36.9 MCV 84.3 MCH 29.2 MCHC 34.6 RDW 13.1 Plt Count 267 Neut % (Auto) 56.3 Lymph % (Auto) 29.2 [place] % (Auto) 9.5 Eos % (Auto) 4.4 H Baso % (Auto) 0.6 Neut # (Auto) 3500 Lymph # (Auto) 1800 [place] # (Auto) 600 Eos # (Auto) 300 Baso # (Auto) 0 Sodium 141 Potassium 3.6 Chloride 107 Carbon Dioxide 26 BUN 7 Creatinine 0.73 Estimated GFR > 60 BUN/Creatinine Ratio 9.6 Glucose 92 Calcium 8.8 [facility] Medical History (Updated 06/10/21 @ 10:59 by Kelle To DO) Anxiety Pharyngitis Social History household members: family Smoking Status: Former smoker alcohol intake: current Discharge Plan Discharge Plan Patient Disposition: Home Provider Discharge Comment: Return to ER for any new fevers, shortness of breath or worsening swelling. Discharge orders & Medications Prescriptions: Continued ondansetron 4 mg tablet,disintegrating 4 mg PO TID-QID PRN (Reason: nausea and vomiting) Qty: 10 0RF Follow up/Referrals: Ricky Pitts MD [Primary Care Provider] - Discharge Data Primary Care Provider: Ricky Pitts Attending Provider: Panchito Marin VTE Deep Vein Thrombosis/Pulmonary Embolism Present on Admission: No
[2021-06-11 08:40] VITALS: BP 112/74; PULSE 74; RESP 16; TEMP 36.3; O2SAT 100
[2021-06-11] MEDS: HYDROCODONE/ACET 5/325 TABLET 1 TAB PO (09:08)
--- NOTE | 2021-06-11 09:18 | PM.OP.EC ---
Operative Date/Time/Diagnoses Date of procedure: 06/11/21 Time of procedure: 09:18 Pre-op diagnosis: Dysphagia and colon cancer screening Post-op diagnosis: same Procedure & Clinicians Study performed: EGD and colonoscopy Surgeon: Panchito Marin Procedure Notes Procedure in detail: Procedure in detail: A timeout was performed. Bite blocked was placed. Patient was positioned in a left lateral decubitus position. Sedation was administered with Versed and fentanyl. Once the patient was sedated the endoscope was inserted through the bite block and passed through the esophagus and stomach and into the duodenum. The duodenum was normal. The antrum was normal but random biopsies were taken to rule out H pylori. In the body of the stomach there were small black lesions on mucosa which may have been old blood but were unable to be dislodged by the scope or by blunt closed forceps so one of them was biopsied with the forceps and sent as ?gastric lesion?. The scope was retroflexed and a very small hiatal hernia was noted. The hiatal hernia was probably about 2 cm. Scope was drawn into the esophagus and the distal see off the gas was noted to be inflamed with long segments of salmon-colored mucosa consistent with long segment Thompson's. The segments were greater than 3 cm. At least 12 biopsies were taken circumferentially from the distal esophagus at various levels. There is also a small polyp in the mid esophagus which was removed with forceps. 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 A digital rectal exam was performed and was normal. The colonoscope was inserted and advanced to the cecum. The appendiceal orifice was identified and photographed. The scope was slowly withdrawn over greater than 6 minutes. There were no lesions noted. Old tattoo ink was noted in the distal sigmoid colon but no polyps were noted there. The scope was retroflexed in the rectum and no lesions were noted. Findings: Normal colonoscopy EBL: 30 mL Scope withdrawal time: 9 Sedation minutes: 43 Post-procedure Recommendations: Will call with biopsy results
--- NOTE | 2021-06-11 09:30 | CM.DANOTE ---
DCP: Case received, EMR reviewed and met with patient. Significant other was also present in the room. Introduced self and role. Was able to obtain some health history from patient. DCP assessment completed with information currently available. Patient is a 21 year old female who admitted yesterday morning to the care of the hospitalist team. PCP: Dr. Pitts. Payer: confirmed: [facility] [employer] [facility] Out of [facility]. Patient came to the hospital via private vehicle secondary to having nausea and vomiting. Patient has history of anxiety, which causes her to vomit. Patient had a recent episode of retching and dry heaving over the last few days causing neck discomfort and swelling. CT scan noted pneumomediastinum. Her esophagram to rule out esophageal perforation was negative, she is here for observation. Met with patient and significant other in room. She was sitting up in bed, trying to eat. 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 She resides here in [place], and confirmed that Dr. Pitts is her primary care provider. P: Patient is to be discharged home today. Magda Pacheco RN/Acquisitions Assistant Discharge Planning/Care Management CM Discharge Assessment Start: 06/11/21 09:29 Freq: Status: Active Protocol: Document 06/11/21 09:30 (Rec: 06/11/21 09:30 [id number]) Discharge Planning Assessment Assigned Home Care Nurse Magda Pacheco RN/Acquisitions Assistant Advance Directives? No History Provided By Patient,Medical Record Prior Living Arrangements House Household Members family Type of transporation used prior to Drives own vehicle admit Independent with ADL's Yes Is patient alert and oriented? Yes Barriers to Discharge No Discharge Plan Home Transportation Arrangement Significant other Referrals Initiated None needed Whiteboard Updated in Patient Room with Yes name and ext. # of Home Care Nurse Review Status In Process Next Review Type Continued Stay Review
--- NOTE | 2021-06-11 10:39 | PC.NURSE ---
Pt A&OX3, reports nausea somewhat improved. She is tolerating clear liquids fairly. MD at bedside this a.m. clearing her for discharge home. She notes that her throat soreness is tolerable at 3-4/10.She verbalizes understanding of discharge medications, and instructions. She is escorted with her boyfriend to private vehicle for discharge home with all of her belongings at 1020.
== END 2021-06-11 10:20 | disposition home or self-care (01) ==
LOC: ED 10:59 → AC 11:03
PROVIDERS: Emergency Medicine; Admitting Provider Surgery; Emergency Provider Emergency Medicine; PCP Family Medicine; Referring Provider Emergency Medicine; Visit Provider Surgery
DX: T79.7XXA Traumatic subcutaneous emphysema, initial encounter (principal); F41.9 Anxiety disorder, unspecified; Z20.822 Contact with and (suspected) exposure to COVID-19
CPT/HCPCS: 36415; 70491; 71046; 71260; 74220; 80048; 80053; 81025; 85025; 87070; 87635; 87651; 96361; 96374; 96375; 96376; 99217; 99218; 99284; C9803; G0378; J1170; J2060; J2270; J2405; Q9967

== ENCOUNTER → 2021-11-15 14:47 | Outpatient (CLI) | payer BC, SELFPAY ==
[2021-06-10 14:02] VITALS: BMI 23.3
== END ==
PROVIDERS: PCP Family Medicine; Visit Provider Registered Nurse
DX: R30.0 Dysuria (principal)
CPT/HCPCS: 87086

== ENCOUNTER → 2022-03-02 07:31 | Outpatient (CLI) | payer BC, SELFPAY ==
[2021-06-10 14:02] VITALS: BMI 23.3
== END ==
PROVIDERS: PCP Family Medicine; Visit Provider Physician Assistant Medical
DX: N89.8 Other specified noninflammatory disorders of vagina (principal)
CPT/HCPCS: 87210

== ENCOUNTER 2022-08-10 04:40 | Emergency (ER) | payer BC, SELFPAY ==
[2021-06-10 14:02] VITALS: BMI 23.3
[2022-08-10 04:45] VITALS: BP 136/84; PULSE 98; RESP 18; TEMP 36.4; O2SAT 97; BMI 22.2
--- NOTE | 2022-08-10 04:54 | ED_ITS ---
HPI - Anxiety General Chief Complaint: Anxiety Stated Complaint: hasn't eaten or drank anything since tuesday Time Seen by Provider: 08/10/22 04:40 Source: patient Mode of arrival: Ambulatory Limitations: no limitations History of Present Illness HPI narrative: Patient is a 22-year-old female who is here for evaluation of several days anxiety and also vomiting and diarrhea. She states she is been nauseous every d ay for the past couple days. She is also feeling very anxious. She is also having diarrhea every time she tries to eat anything. She does not know what she is anxious about. She has had issues like this in the past and has been seen here in the emergency department. She does not take any medications for her anxiety. She has seen someone in the past for but she thought that was not helping so she does not see anybody currently. She denies any urinary symptoms. No abdominal pain. She states she feels like she can not catch her breath but no chest pain. Related Data Previous Rx's Medication Instructions Recorded ondansetron 4 mg disintegrating 4 mg PO TID-QID PRN nausea and 10/14/19 tablet vomiting #10 tabs ondansetron 4 mg disintegrating 4 mg PO Q8H PRN nausea and 06/11/21 tablet vomiting #14 tabs lorazepam 1 mg tablet (Ativan) 1 mg PO BID PRN anxiety #14 tabs 08/10/22 ondansetron 4 mg disintegrating 4 mg PO Q6H PRN nausea and 08/10/22 tablet vomiting #10 tabs Allergies Allergy/AdvReac Type Severity Reaction Status Date / Time No Known Drug Allergies Allergy Verified 03/02/22 07:35 Review of Systems Constitutional Constitutional: Reports system reviewed and no additional complaints, except as documented Cardiovascular Cardiovascular: Reports system reviewed and no additional complaints, except as documented Respiratory Respiratory: Reports system reviewed and no additional complaints, except as documented Gastrointestinal Gastrointestinal: Reports system reviewed and no additional complaints, except as documented Genitourinary Genitourinary: Reports system reviewed and no additional complaints, except as documented Psychiatric Psychiatric: Reports system reviewed and no additional complaints, except as documented Patient History Medical History Anxiety Pharyngitis Social History household members: family Smoking Status: Former smoker alcohol intake: current Smoking Status: Former smoker alcohol intake frequency: 0-2 drinks per day Alcohol type: beer Substance Use Type: marijuana Exam Initial Vital Signs Initial Vital Signs: Vital Signs Temperature 97.6 F 08/10/22 04:45 Pulse Rate 98 H 08/10/22 04:45 Respiratory Rate 18 08/10/22 04:45 Blood Pressure 136/84 08/10/22 04:45 Pulse Oximetry 97 08/10/22 04:45 Oxygen Delivery Method Room Air 08/10/22 04:45 Resp Effort & Inspection: normal respiratory effort Auscultation: clear to auscultation bilaterally Cardio Rate: regular rate Rhythm: regular rhythm GI Inspection: normal to inspection and non-distended Palpation: soft and No tender Skin General: no rashes or lesions noted Neuro General: patient alert, patient awake and moves all extremities Extrem General: capillary refill normal Course Orders Ordered: ED Orders 08/10/22 05:00 Basic Metabolic Panel Stat Complete Blood Count AUTO DIFF Stat Discontinued Medications Sodium Chloride (Normal Saline 0.9%) 1,000 mls @ 1,000 mls/hr IV BOLUS ONE Stop: 08/10/22 05:50 Last Admin: 08/10/22 05:11 Dose: 1,000 mls/hr Documented By: HARLAN Lorazepam (Lorazepam 2 Mg/Ml Inj) 1 mg IV NOW ONE Stop: 08/10/22 04:52 Last Admin: 08/10/22 05:11 Dose: 1 mg Documented By: HARLAN Lorazepam (Lorazepam 2 Mg/Ml Inj) 1 mg IV NOW ONE Stop: 08/10/22 05:55 Ondansetron HCl (Ondansetron 4 Mg/2 Ml Inj) 4 mg IV NOW ONE Stop: 08/10/22 04:52 Last Admin: 08/10/22 05:11 Dose: 4 mg Documented By: AP Vital Signs Vital signs: Vital Signs - 8 hr 08/10/22 04:45 08/10/22 05:46 Temperature 97.6 F Pulse Rate 98 H 81 Respiratory Rate 18 16 Blood Pressure 136/84 111/73 Pulse Oximetry 97 Oxygen Delivery Method Room Air MDM - Anxiety Lab Data 08/10/22 05:00 08/10/22 05:00 Labs: Lab Results 08/10/22 08/10/22 Range/Units 05:00 05:00 WBC 10.3 (4.5-11.0) X10^3/uL RBC 5.00 (4.0-5.2) X10^6/uL Hgb 14.7 (12.0-16.0) g/dL Hct 42.2 (36-46) % MCV 84.4 (80-100) fL MCH 29.4 (26-34) PG MCHC 34.8 (30-36) % RDW 12.7 (11.6-14.8) % Plt Count 354 (150-400) X10^3/uL Neut % (Auto) 75.6 H (50-75) % Lymph % (Auto) 17.5 L (25-40) % [place] % (Auto) 6.3 (3-14) % Eos % (Auto) 0.0 L (2-4) % Baso % (Auto) 0.6 (0-2) % Neut # (Auto) 7800 H (1441-8015) /uL Lymph # (Auto) 1800 (6618-4227) /uL [place] # (Auto) 600 (0-900) /uL Eos # (Auto) 0 (0-450) /uL Baso # (Auto) 100 (0-100) /uL Sodium 140 (137-145) mmol/L Potassium 3.2 L (3.4-5.1) mmol/L Chloride 104 (98-107) mmol/L Carbon Dioxide 15 L (22-32) mmol/L BUN 13 (7-17) mg/dL Creatinine 0.69 (0.52-1.04) mg/dL Estimated GFR > 60 (>60) mL/min BUN/Creatinine Ratio 18.8 (6-22) Glucose 112 H (70-100) mg/dL Calcium 9.2 (8.4-10.2) mg/dL [facility] Narrative Medical decision making narrative: Patient states she does feel better after medications here in the emergency department. I have a very strong suspicion that her nausea and vomiting related to her anxiety. She is presenting very similar to this in the past. She states that her anxiety is not completely gone. She is been able to tolerate oral intake. You feel that we can hold on further workup for now. Was sent home with a prescription for nausea medicine and also short course of Ativan that she can use as needed. She was given return precautions. She expressed understanding and agreement. Discharge Plan Departure Patient Disposition: Home Clinical Impression: Anxiety, Nausea Instructions: DI for Anxiety -- Adult, DI for Nausea -- Adult Activity Restrictions/Additional Instructions: Use the nausea medication in the anxiety medication as needed. If your finding that this is becoming more of an issue you are definitely going to need to talk with your primary doctor. Return to the emergency department for new or worsening symptoms. Prescriptions: New ondansetron 4 mg tablet,disintegrating 4 mg PO Q6H PRN (Reason: nausea and vomiting) Qty: 10 0RF lorazepam [Ativan] 1 mg tablet 1 mg PO BID PRN (Reason: anxiety) Qty: 14 0RF No Action ondansetron 4 mg tablet,disintegrating 4 mg PO TID-QID PRN (Reason: nausea and vomiting) Qty: 10 0RF ondansetron 4 mg tablet,disintegrating 4 mg PO Q8H PRN (Reason: nausea and vomiting) Qty: 14 0RF Referrals: Ricky Pitts MD [Primary Care Provider] - Stand Alone Forms: Patient Portal/API
[2022-08-10] MEDS: ONDANSETRON 4 MG/2 ML INJ IV (05:11)
[2022-08-10] MEDS: LORazepam 2 MG/ML INJ 1 MG IV (05:11)
[2022-08-10] MEDS: SODIUM CHLORIDE 0.9% 1,000 ML 1000 ML IV (05:11)
[2022-08-10 05:12] LABS: Add Manual Diff / Slide Review NO; Basophils Absolute Auto 100 /uL (0-100); Basophils Percent Auto 0.6 % (0-2); Eosinophils Absolute Auto 0 /uL (0-450); Hematocrit 42.2 % (36-46); Hemoglobin 14.7 g/dL (12.0-16.0); Lymphocytes Absolute Auto 1800 /uL (1100-4500); Lymphocytes Percent Auto 17.5 % (25-40); Mean Corpuscular HGB Conc 34.8 % (30-36); Mean Corpuscular Hemoglobin 29.4 PG (26-34); Mean Corpuscular Volume 84.4 fL (80-100); Monocytes Absolute Auto 600 /uL (0-900); Monocytes Percent Auto 6.3 % (3-14); Neutrophils Absolute Auto 7800 /uL (1500-7000); Neutrophils Percent Auto 75.6 % (50-75); Platelet Count 354 X10^3/uL (150-400); Red Cell Distribution Width 12.7 % (11.6-14.8); White Blood Cell Count 10.3 X10^3/uL (4.5-11.0)
[2022-08-10 05:21] LABS: BUN Creatinine Ratio 18.8 (6-22); Blood Urea Nitrogen 13 mg/dL (7-17); Calcium 9.2 mg/dL (8.4-10.2); Carbon Dioxide 15 mmol/L (22-32); Chloride 104 mmol/L (98-107); Estimated Glomerular Filt Rate > 60 mL/min (>60); Glucose 112 mg/dL (70-100); HEMOLYSIS < 15 (0-50); Potassium 3.2 mmol/L (3.4-5.1); Sodium 140 mmol/L (137-145)
[2022-08-10 05:46] VITALS: BP 111/73; PULSE 81; RESP 16
== END 2022-08-10 08:17 | disposition home or self-care (01) ==
PROVIDERS: Emergency Provider Emergency Medicine; PCP Family Medicine
DX: F41.9 Anxiety disorder, unspecified (principal); R11.2 Nausea with vomiting, unspecified
CPT/HCPCS: 36415; 80048; 85025; 96361; 96374; 96375; 99284; J2060; J2405

== ENCOUNTER → 2022-12-13 18:46 | Outpatient (CLI) | payer BC, SELFPAY ==
[2021-06-10 14:02] VITALS: BMI 23.3
== END ==
PROVIDERS: PCP Family Medicine; Visit Provider Registered Nurse
DX: J02.9 Acute pharyngitis, unspecified (principal)
CPT/HCPCS: 87070

== ENCOUNTER → 2024-11-08 11:18 | Outpatient (CLI) | payer BC, OTHER, SELFPAY ==
[2021-06-10 14:02] VITALS: BMI 23.3
== END ==
PROVIDERS: PCP Family Medicine; Visit Provider Nurse Practitioner Family
DX: Z11.3 Encounter for screening for infections with a predominantly sexual mode of transmission (principal); R30.0 Dysuria; N94.9 Unspecified condition associated with female genital organs and menstrual cycle
CPT/HCPCS: 87086; 87210

== ENCOUNTER → 2024-11-08 12:43 | Outpatient (CLI) | payer BC, OTHER, SELFPAY ==
[2021-06-10 14:02] VITALS: BMI 23.3
[2024-11-08 14:45] LABS: Urine N gonorrhoeae NOT DETECTED
[2024-11-08 14:57] LABS: Urine Chlamydia NOT DETECTED
[2024-11-08 15:40] LABS: HIV 1 & 2 Ab/Ag 4th Gen Combo NEGATIVE (NEGATIVE); Hep C Virus Ab w/Reflex Quant NEGATIVE s/c (NEGATIVE)
[2024-11-08 15:52] LABS: Hepatitis B Surface Antigen NEGATIVE s/c (NEGATIVE)
== END ==
PROVIDERS: PCP Family Medicine; Referring Provider Family Medicine; Visit Provider Nurse Practitioner Family
DX: Z11.3 Encounter for screening for infections with a predominantly sexual mode of transmission (principal); R30.0 Dysuria; N94.9 Unspecified condition associated with female genital organs and menstrual cycle; Z72.51 High risk heterosexual behavior
CPT/HCPCS: 36415; 81025; 86592; 86803; 87086; 87210; 87340; 87389; 87491; 87591

== ENCOUNTER → 2024-12-07 15:40 | Outpatient (CLI) | payer OTHER, SELFPAY ==
[2021-06-10 14:02] VITALS: BMI 23.3
== END ==
PROVIDERS: PCP Family Medicine; Visit Provider Nurse Practitioner Family
DX: N89.8 Other specified noninflammatory disorders of vagina (principal); R30.0 Dysuria
CPT/HCPCS: 87086; 87210